=== PATIENT | male | born 1960 | race African-American/Black ===

== ENCOUNTER → 2017-06-16 | Outpatient (CLI) | payer BC ==
--- NOTE | 2017-06-16 12:09 | RADIOLOGY REPORT (SQ) ---
EXAM DESCRIPTION: KNEE BILAT AP UPRIGHT COMPLETED DATE/TIME: 06/16/2017 11:00 am REASON FOR STUDY: BILATERAL PRIMARY OSTEOARTHRITIS OF KNEE M17.0 BILATERAL PRIMARY OSTEOARTHRITIS O F KNEE COMPARISON: None. NUMBER OF VIEWS: One view. TECHNIQUE: AP standing bilateral knees. LIMITATIONS: None. FINDINGS: MINERALIZATION: Normal. RIGHT KNEE BONES: No acute fracture. No worrisome bone lesions. MEDIAL COMPARTMENT: There is marked narrowing of the medial compartment with subchondral sclerosis. No significant osteophytes. LATERAL COMPARTMENT: No significant osteophytes. No joint space narrowing. No chondrocalcinosis. LEFT KNEE BONES: No acute fracture. No worrisome bone lesions. MEDIAL COMPARTMENT: There is marked narrowing of the medial compartment. No significant osteophytes. Subchondral sclerosis is present. LATERAL COMPARTMENT: No significant osteophytes. No joint space narrowing. No chondrocalcinosis. IMPRESSION: There is marked medial compartment degenerative joint change bilaterally. TECHNICAL DOCUMENTATION: JOB ID: [id number] [employer]- All Rights Reserved Reading location - IP/workstation name: [email or web address]
== END ==
LOC: OD 10:42
PROVIDERS: ATTEND Internal Medicine
DX: M17.0 Bilateral primary osteoarthritis of knee (principal)
CPT/HCPCS: 73565

== ENCOUNTER 2019-04-10 19:15 | Emergency (ER) | payer BC ==
--- NOTE | 2019-04-10 20:41 | ER Document Report ---
ED Medical Screen (RME) - General Chief Complaint: Leg Swelling Stated Complaint: LEG SWELLING/PAIN Time Seen by Provider: 04/10/19 20:28 Primary Care Provider: FIDE BANDA MD [Primary Care Provider] - Follow up as needed TRAVEL OUTSIDE OF THE [place] IN LAST 30 DAYS: No - HPI Notes: 04/10/19 20:37 58-year-old male to the emergency department with complaints of progressively worsening bilateral leg edema, ulceration and weeping. He states the legs hurt where the ulcerations are. He has been struggling with this for several months but he is concerned because instead of getting better they are getting worse. He is got redness to the bottom of his legs and diabetic. He is not on any blood thinners. He has never had a DVT. Denies any fevers or chills. He states that he called his primary care physician Dr. Banda but could not get in to be seen until next week. I performed a brief medical screening exam on the patient and determined he will need further evaluation by main side provider. I placed initial orders to expedite his care today. - Related Data Allergies/Adverse Reactions: No Known Allergies Allergy (Verified 04/10/19 20:26) Home Medications: Metformin, Simvastatin, Pioglitazone, Januvia, Victoza, sildenafil, cyanocobalamin. Tamsulosin. Olmesartan/amlodipine/ HCTZ. ASA Past Medical History - Past Medical History Cardiac Medical History: Reports: Hx Hypertension Denies: Hx Coronary Artery Disease, Hx Heart Attack Pulmonary Medical History: Denies: Hx Asthma, Hx Bronchitis, Hx COPD, Hx Pneumonia Neurological Medical History: Denies: Hx Cerebrovascular Accident, Hx Seizures Endocrine Medical History: Reports: Hx Diabetes Mellitus Type 2 Musculoskeltal Medical History: Reports Hx Arthritis - KNEES Past Surgical History: Reports: Hx Appendectomy. Denies: Hx Pacemaker - Immunizations Hx Diphtheria, Pertussis, Tetanus Vaccination: Yes - UNKNOWN Physical Exam - Vital signs Vitals: Temp Pulse Resp BP Pulse Ox 99.0 F 112 H 20 150/72 H 100 04/10/19 19:22 04/10/19 19:22 04/10/19 19:22 04/10/19 19:22 04/10/19 19:22 Course - Vital Signs Vital signs: Temp Pulse Resp BP Pulse Ox 99.0 F 112 H 20 150/72 H 100 04/10/19 19:22 04/10/19 19:22 04/10/19 19:22 04/10/19 19:22 04/10/19 19:22 Doctor's Discharge - Discharge Referrals: FIDE BANDA MD [Primary Care Provider] - Follow up as needed
[2019-04-10 21:18] LABS: ABSOLUTE BASOPHILS # (AUTO) 0.1 10^3/uL (0.0-0.2); ABSOLUTE EOSINOPHILS # (AUTO) 0.1 10^3/uL (0.0-0.6); ABSOLUTE LYMPHOCYTES (AUTO) 1.9 10^3/uL (0.5-4.7); ABSOLUTE MONOCYTES (AUTO) 0.5 10^3/uL (0.1-1.4); ABSOLUTE NEUT (AUTO) 4.6 10^3/uL (1.7-8.2); HEMOGLOBIN 11.4 g/dL (13.5-17.0); LYMPHOCYTES % (AUTO) 26.7 % (13-45); MEAN CORPUSCULAR HEMOGLOBIN 27.7 pg (27.0-33.4); MEAN CORPUSCULAR HGB CONC 32.5 g/dL (32.0-36.0); MEAN CORPUSCULAR VOLUME 85 fl (80-97); MONOCYTES % (AUTO) 7.1 % (3-13); PLATELET COUNT 334 10^3/uL (150-450); RED CELL DISTRIBUTION WIDTH 15.9 % (11.5-14.0); SEGMENTED NEUTROPHILS % (AUTO) 63.2 % (42-78); TOTAL CELLS COUNTED % (AUTO) 100 %; WHITE BLOOD COUNT 7.3 10^3/uL (4.0-10.5)
[2019-04-10 21:39] LABS: ALBUMIN 3.9 g/dL (3.5-5.0); ALKALINE PHOSPHATASE 107 U/L (38-126); ANION GAP 8 (5-19); ASPARTATE AMINO TRANSFERASE 22 U/L (17-59); BILIRUBIN,TOTAL 0.3 mg/dL (0.2-1.3); BLOOD UREA NITROGEN 13 mg/dL (7-20); CALCIUM 9.6 mg/dL (8.4-10.2); CARBON DIOXIDE 27 mmol/L (22-30); CHLORIDE 107 mmol/L (98-107); GLUCOSE 86 mg/dL (75-110); POTASSIUM 4.1 mmol/L (3.6-5.0); TOTAL PROTEIN 7.8 g/dL (6.3-8.2)
--- NOTE | 2019-04-10 23:34 | ER Document Report ---
ED General - General Chief Complaint: Leg Swelling Stated Complaint: LEG SWELLING/PAIN Time Seen by Provider: 04/10/19 20:28 Primary Care Provider: FIDE BANDA MD [Primary Care Provider] - Follow up as needed TRAVEL OUTSIDE OF THE [place] IN LAST 30 DAYS: No - HPI Notes: Patient is a 58-year-old male with a history of lymphedema who presents to the emergency department for evaluation. He was seen by the lymphedema clinic, was supposed to be wearing compression stockings and getting further treatment, did not follow-up. The patient states he developed wounds on the area on his lower legs several weeks ago. They seem to be weeping and getting larger, so he presents to the ED for further evaluation. He states the swelling really is not worse. He denies any chest pain, difficulty breathing, or posterior calf pain. No fevers or chills. No nausea or vomiting. He states his sugars have been well controlled. - Related Data Allergies/Adverse Reactions: No Known Allergies Allergy (Verified 04/10/19 20:26) Home Medications: Metformin, Simvastatin, Pioglitazone, Januvia, Victoza, sildenafil, cyanocobalamin. Tamsulosin. Olmesartan/amlodipine/ HCTZ. ASA Past Medical History - General Information source: Patient - Social History Smoking Status: Never Smoker Family History: Reviewed & Not Pertinent Patient has suicidal ideation: No Patient has homicidal ideation: No - Past Medical History Cardiac Medical History: Reports: Hx Hypercholesterolemia, Hx Hypertension Denies: Hx Coronary Artery Disease, Hx Heart Attack Pulmonary Medical History: Denies: Hx Asthma, Hx Bronchitis, Hx COPD, Hx Pneumonia Neurological Medical History: Denies: Hx Cerebrovascular Accident, Hx Seizures Endocrine Medical History: Reports: Hx Diabetes Mellitus Type 2 Musculoskeletal Medical History: Reports Hx Arthritis - KNEES Past Surgical History: Reports: Hx Appendectomy. Denies: Hx Pacemaker - Immunizations Hx Diphtheria, Pertussis, Tetanus Vaccination: Yes - UNKNOWN Hx Pneumococcal Vaccination: 12/14/12 Review of Systems - Review of Systems Constitutional: No symptoms reported EENT: No symptoms reported Cardiovascular: No symptoms reported Respiratory: No symptoms reported Gastrointestinal: No symptoms reported Genitourinary: No symptoms reported Musculoskeletal: See HPI Skin: See HPI Neurological/Psychological: No symptoms reported Physical Exam - Vital signs Vitals: Temp Pulse Resp BP Pulse Ox 99.0 F 112 H 20 150/72 H 100 04/10/19 19:22 04/10/19 19:22 04/10/19 19:22 04/10/19 19:22 04/10/19 19:22 - Notes Notes: Vital signs reviewed, please refer to chart. Head is normocephalic, atraumatic. Pupils equal round, reactive to light. Neck is supple without meningismus. Heart is regular rate and rhythm. Lungs are clear to auscultation bilaterally. Abdomen is soft, nontender, normoactive bowel sounds throughout. Examination of the bilateral lower extremities shows lymphedematous changes to bilateral lower legs. He has chronic appearing, weeping wounds, superficial in nature, to the posterior distal calves bilaterally. On the right it is 12 x 8 cm, on the left he has 2 separate wounds, 4 x 3, and 4 x 6 cm. No significant surrounding erythema or induration. Mild calor associated with bilateral lower extremities. Neurovascularly intact. Absolutely no calf tenderness noted. Peripheral pulses are equal. Course - Re-evaluation Re-evalutation: 04/10/19 23:31 Patient presents to the emergency department for evaluation. He is concerned because the wounds in the back of his legs are weeping and are not healing. I explained to the patient this is all as a result of his lymphedema, his lack of treatment for this condition. He was instructed that he needs to keep these wounds dressed. He was instructed he should try to lose weight, wear compression stockings, and follow-up with his primary care provider in regards to the ultimate control of his lymphedema. I do not have a strong suspicion for DVT in this patient. He has no history of DVT, no family history of DVT, no other significant risk factors. He voiced understanding to this. He has an appointment with Dr. Banda on April 20. He understands if he develops worsening or new concerning symptoms of any sort he needs to return immediately to the emergency department for evaluation. - Vital Signs Vital signs: Temp Pulse Resp BP Pulse Ox 98.7 F 92 18 130/80 H 98 04/10/19 22:53 04/10/19 22:53 04/10/19 22:53 04/10/19 22:53 04/10/19 22:53 - Laboratory Result Diagrams: 04/10/19 21:05 04/10/19 21:05 Laboratory results interpreted by me: 04/10/19 21:05 RBC 4.10 L Hgb 11.4 L Hct 35.0 L RDW 15.9 H Discharge - Discharge Clinical Impression: Lymphedema Open wound of both lower extremities with complication Qualifiers: Encounter type: initial encounter Qualified Code(s): S81.801A - Unspecified open wound, right lower leg, initial encounter; S81.802A - Unspecified open wound, left lower leg, initial encounter Condition: Stable Disposition: HOME, SELF-CARE Instructions: Lymphedema ([facility]), Dressing Instructions for Open Wounds ([facility]) Additional Instructions: Keep wounds clean, protected from contamination. Follow lymphedema instructions as previously given. Follow-up with your primary care provider as scheduled. Return to the emergency department for worsening or new concerning symptoms of any sort. Forms: Return to Work Referrals: FIDE BANDA MD [Primary Care Provider] - Follow up as needed
[2019-04-11 00:03] VITALS: BP 120/68
== END 2019-04-11 00:53 | disposition home or self-care (01) ==
LOC: ER 19:15
DX: I89.0 Lymphedema, not elsewhere classified (principal); Z91.19 Patient's noncompliance with other medical treatment and regimen; S81.801A Unspecified open wound, right lower leg, initial encounter; S81.802A Unspecified open wound, left lower leg, initial encounter; X58.XXXA Exposure to other specified factors, initial encounter; I10 Essential (primary) hypertension; E78.00 Pure hypercholesterolemia, unspecified; E11.9 Type 2 diabetes mellitus without complications; Z79.84 Long term (current) use of oral hypoglycemic drugs; Z79.899 Other long term (current) drug therapy; Z79.82 Long term (current) use of aspirin
CPT/HCPCS: 36415; 80053; 85025; 87040; 87070; 87077; 87186; 87205; 99283